=== PATIENT | female | born 1945 | race Caucasian/White ===

== ENCOUNTER 2021-08-17 17:04 | Emergency (ER) | payer MEDICARE, MEDICAID, SELFPAY ==
[2021-08-17 17:04] VITALS: BP 123/73; PULSE 81; RESP 14; TEMP 36.1; O2SAT 97; BMI 23.1
--- NOTE | 2021-08-17 17:37 | ED.VIS.LOWEX ---
HPI History of Present Illness Chief Complaint: Lower Extremity Injury Informant: patient and spouse/S.O. Occured/Mechanism Comment: Atraumatic left knee pain Onset/Context/Timing Context: Gradual Onset Timing: Continuous Quality of Pain: Dull and Aching Location: Left knee Current Severity: Mild Maximum Severity: Severe Worsened by: Movement, weightbearing Relieved by: Nothing Associated Symptoms Associated Symptoms: Negative for Parasthesia, Weakness and Loss of Funtion Narrative Narrative: Patient is an elderly woman who presents with atraumatic left knee pain. She denies history of gout or pseudogout. She states her knee was injected recently. The injection had no effect. She denies history of PE or DVT. She denies fever, chills or night sweats. She has no other complaints. She does report history of plantar fasciitis. She sees a family program specialist. Her PCP is Dr. Adan hua. Tetanus Immunization: 5-10 years Prior similar symptoms: No Recent Illness/Hospitalization: Yes PFSH PFSH Home Medications albuterol sulfate [Proair Hfa] 1 puff DAILY 04/12/16 [History Last Taken 02/25/17] [id number] [Trelegy Ellipta] 1 inh DAILY 08/17/21 [History Last Taken Unknown] hydrocodone-acetaminophen 1 tab PO Q6H PRN PRN 3 Days #10 tablet 08/17/21 [Rx Last Taken Unknown] meloxicam 7.5 mg DAILY 08/17/21 [History Last Taken Unknown] paroxetine HCl 10 mg PO DAILY 08/17/21 [History Last Taken Unknown] Allergy/AdvReac Type Severity Reaction Status Date / Time No Known Allergies Allergy Verified 08/17/21 17:04 Social History (Updated 08/17/21 @ 17:[address] Brad Baker MD) household members: spouse Smoking Status: Current every day smoker tobacco type: cigarettes substance use type: does not use ROS ROS ED Constitutional Constitutional ED: Denies chills, fever(s), subjective or sweats Eyes Eyes: Denies blurry vision, change in vision or diplopia ENT ENT ED: Denies ear pain, rhinorrhea or sore throat Cardiovascular Cardiovascular: Denies chest pain, orthopnea, palpitations, paroxysmal nocturnal dyspnea or racing heartbeat Respiratory/Chest Respiratory/Chest: Denies cough, dyspnea, dyspnea on exertion, orthopnea or paroxysmal nocturnal dyspnea Gastrointestinal Gastrointestinal: Denies abdominal pain, diarrhea, nausea or vomiting Integumentary Denies abscess, Abrasions or rash Neurologic Neurologic: Denies headache(s), paresthesias or weakness Psychiatric Psychiatric: Denies anxiety, depression or suicidal thoughts Endocrine Endocrinology: Denies polydipsia, polyphagia or polyuria Hematologic/Lymphatic Hematologic/Lymphatic: Denies easy bleeding, easy bruising or lymphadenopathy EXAM Physical Exam Const Vital Signs: 08/17/21 17:04 Temperature 96.9 F L Temperature Source Temporal Pulse Rate 81 Respiratory Rate 14 Blood Pressure 123/73 H Blood Pressure Mean 89 Pulse Ox 97 Oxygen Delivery Method Room Air Positive well nourished and well developed; Negative for obese General Appearance ED: well developed and NAD Nutritional Appearance: Negative for obese HEENT normocephalic and atraumatic Eyes PERRL Eyes Narrative: Extract muscles are intact. Sclerae anicteric. Conjunctive is pink. Neck full ROM and supple Resp normal respiratory effort and clear to auscultation bilaterally Cardio regular rate, regular rhythm, S1 normal heart sound, S2 normal heart sound and no murmurs GI non-tender and non-distended Auscultation: normoactive bowel sounds Palpation: soft Extremity normal to inspection and full ROM Extremity Narrative: The patella is not ballotable. There is an effusion. There is fluid collection popliteal fossa consistent with Canchola's cyst. There is no tenderness on the distribution of deep venous system. There is no asymmetry, swelling of the leg, leg vein distention or discoloration. General Extremety ED: Yes weight-bearing difficulty; Negative for cyanosis or edema General Extremity: weight-bearing difficulty; Negative for cyanosis or edema Neuro oriented x3 and CN's II-XII intact bilaterally Sensorium / Orientation: alert Motor Exam: strength 5/5 throughout Psych mental status grossly normal Skin no wounds Lesions: no lesions Rashes: no rashes MDM MDM MDM Narrative Medical decision making narrative: X-ray of the knee was obtained to determine if there is anything other than arthritis. Patient was medicated with hydrocodone. Radiography Diagnostic Testin view x-ray of the left knee reveals small effusion and chronic changes. There is no fracture or any other abnormality noted. X-ray was interpreted by me at 1837. Discharge Plan Triage Chief Complaint: Lower Extremity Injury ED Provider: Brad Baker Dx/Rx/DC Orders Clinical Impression: Effusion of left knee joint, Canchola's cyst of knee, Osteoarthritis of left knee Instructions: ED Canchola's Cyst, ED Knee Effusion, ED Osteoarthritis Prescriptions: New hydrocodone-acetaminophen [hydrocodone-acetaminophen] 1 TABLET tablet 1 tab PO Q6H PRN PRN (Reason: Pain) 3 Days Qty: 10 RF: 0 No Action albuterol sulfate [ProAir HFA] 1 PUFF inhaler 1 puff DAILY RF: 0 paroxetine HCl 10 mg tablet 10 mg PO DAILY RF: 0 meloxicam 7.5 mg tablet 7.5 mg DAILY RF: 0 Trelegy Ellipta 100-62.5-25 mcg blister with device 1 inh DAILY RF: 0 Primary Care Provider: Adan Ruano Referrals: Adan Ruano MD [Primary Care Provider] - 3-5 Days if not improving Disposition Disposition: Home, Self Care
[2021-08-17] MEDS: HYDROcodone Bitartrate/Apap 5/325 Tablet PO (17:50)
--- NOTE | 2021-08-17 18:05 | RAD_ITS ---
STUDY: X-RAY - LEFT KNEE REASON FOR EXAM: Female, 75 years old. Injury/Pain TECHNIQUE: For view(s) of the knee. COMPARISON: None. FINDINGS: Normal visualized distal femur. Normal visualized proximal tibia and fibula. Normal proximal tibiofibular articulation. There is no demonstrated fracture. There is mild degenerative arthrosis of the medial femorotibial compartment. There is mild degenerative arthrosis of the lateral femorotibial compartment. Normal patellofemoral articulation. There is no demonstrated joint effusion. The soft tissue structures are unremarkable. RAD/Knee 4 or More Views IMPRESSION: Mild degenerative changes Electronically Signed: Mike Peralta MD at 19:11 EDT , Service support ,
[2021-08-17 18:49] VITALS: PULSE 88; RESP 16; O2SAT 95
== END 2021-08-17 18:49 | disposition home or self-care (01) ==
PROVIDERS: Emergency Provider Emergency Medicine; PCP Family Medicine
DX: M71.22 Synovial cyst of popliteal space [Baker], left knee (principal); M17.12 Unilateral primary osteoarthritis, left knee; M25.462 Effusion, left knee; F17.210 Nicotine dependence, cigarettes, uncomplicated
CPT/HCPCS: 73564; 99282